=== PATIENT | female | born 1975 | race Caucasian/White ===

== ENCOUNTER → 2017-04-20 | Outpatient (CLI) | payer BC ==
[~2017-04-20] MED LIST: ASCA500 PO; CHOL100010 PO; FAMO10TA50 PO; MULT-513 PO; VSC/10 PO
== END | disposition home or self-care (01) ==
LOC: C.PAPS 15:05
PROVIDERS: ATTEND Obstetrics & Gynecology
DX: Z01.419 Encounter for gynecological examination (general) (routine) without abnormal findings (principal)